=== PATIENT | female | born 1955 ===

== ENCOUNTER 2020-08-27 07:48 | Day surgery (SDC) | payer OTHER | END 2020-08-27 10:10 | disposition home or self-care (01) | LOC: AMB-ENDOS 07:48 | PROVIDERS: ATTEND Surgery | DX: K57.32 Diverticulitis of large intestine without perforation or abscess without bleeding (principal); K64.4 Residual hemorrhoidal skin tags; Z20.822 Contact with and (suspected) exposure to COVID-19 ==

== ENCOUNTER 2020-09-25 05:36 | Day surgery (SDC) | payer OTHER | END 2020-09-25 10:40 | disposition home or self-care (01) | LOC: AMB-ENDOS 05:36 | PROVIDERS: ATTEND Surgery | DX: D13.1 Benign neoplasm of stomach (principal); D13.2 Benign neoplasm of duodenum; K44.9 Diaphragmatic hernia without obstruction or gangrene; Z20.822 Contact with and (suspected) exposure to COVID-19 ==